=== PATIENT | male | born 1930 | race African-American/Black ===

== ENCOUNTER 2016-11-11 20:55 | Inpatient (IN) | payer OTHER, MEDICAID ==
[~2016-11-11] VITALS: Ht 182.9 cm; Wt 126.1 kg
[2016-11-11 20:57] VITALS: BP 97/55
--- NOTE | 2016-11-11 21:04 | NUR ---
PT BARRETT, VICTOR MS. TAKEN TO BED 1
--- NOTE | 2016-11-11 21:08 | NUR ---
86 Y/O M BIBA FROM [facility] IN [place] W/C/O Gangrenous left great toe, sent from [facility] per Dr Tipton. TOE AND FOOT APPEARS BLACK, TOE HAS AN OPEN 0.5 CM WOUND WITH TUNNELING. EXTREMITY APPEARS SWOLLEN. PT HAS A HX OF DEMENTIA, DM, AND HNT. VSS, PT AWAKED AND ORIENTED X 2,ER MD AWARED. NO S/S OF DISTRESS NOTED AT THE MOMENT.
[2016-11-11] MEDS ORDERED: VANCOMYCIN 1,000 MG in DEXTROSE 5% 250 ML IV ONE (21:50)
[2016-11-11] MEDS ORDERED: PIPERACILLIN/TAZOBACTAM 3.375 GM in DEXTROSE 5% 50 ML IV ONE (21:50)
--- NOTE | 2016-11-11 21:55 | NUR ---
X-Ray at bedside.
[2016-11-11] MEDS ORDERED: PIPERACILLIN/TAZOBACTAM 3.375 GM VIAL IV ONE (22:06)
[2016-11-11] MEDS ORDERED: VANCOMYCIN 1,000 MG VIAL ONE (22:07)
[2016-11-11] MEDS ORDERED: NEOMYCIN/POLYMYXIN/BACITRACIN 0.9 GM/1 PKT TP ONE (22:27)
[2016-11-11 22:29] LABS: BASOPHILS # (AUTO) 0.2 K/uL (0.00-0.22); BASOPHILS % (AUTO) 2.5 % (0.0-2.0); EOSINOPHILS # (AUTO) 0.2 K/uL (0-0.4); EOSINOPHILS % (AUTO) 2.3 % (0.0-4.0); HEMATOCRIT 32.7 % (36-52); HEMOGLOBIN 10.3 g/dL (12.0-18.0); LYMPHOCYTES # (AUTO) 2.7 K/uL (2.0-11.5); MEAN CORPUSCULAR HEMOGLOBIN 29 pg (27-31); MEAN CORPUSCULAR HGB CONC 32 g/dL (33-37); MEAN CORPUSCULAR VOLUME 92 fL (80-94); MONOCYTES # (AUTO) 0.6 K/uL (0.8-1.0); MONOCYTES % (AUTO) 9.2 % (1.7-9.3); NEUTROPHILS # (AUTO) 3.2 K/uL (1.8-7.7); PLATELET COUNT (AUTO) 235 K/uL (140-450); RED BLOOD CELL COUNT(AUTO) 3.57 MIL/uL (4.20-6.10); RED CELL DISTRIBUTION WIDTH 13.8 % (11.6-13.7); WHITE BLOOD COUNT (AUTO) 6.9 K/uL (4.8-10.8)
[2016-11-11 22:45] LABS: ALANINE AMINOTRANSFERASE 49 U/L (12-78); ALBUMIN 2.3 g/dL (3.4-5.0); ALKALINE PHOSPHATASE 570 U/L (46-116); ANION GAP 7.2 (8-16); ASPARTATE AMINOTRANSFERASE 37 U/L (15-37); CALCIUM 8.1 mg/dL (8.5-10.1); CARBON DIOXIDE 31.3 mmol/L (21-32); CHLORIDE 104 mmol/L (98-107); CREATININE 2.1 mg/dL (0.6-1.3); GLUCOSE 319 mg/dL (74-106); POTASSIUM 4.5 mmol/L (3.5-5.1); SODIUM SERUM 138 mmol/L (136-145); TOTAL BILIRUBIN 0.2 mg/dL (0.0-1.0); UREA NITROGEN, BLOOD 45 mg/dL (7-18)
--- NOTE | 2016-11-11 23:03 | NUR ---
Dr. Castellon evaluating patient at bedside.
[2016-11-11 23:45] LABS: APPEARANCE,URINE CLEAR (CLEAR); BILIRUBIN,URINE NEGATIVE (NEGATIVE); BLOOD, URINE 3+ (NEGATIVE); COLOR,URINE YELLOW (YELLOW); LEUKOCYTE ESTERASE ,URINE 1+ (NEGATIVE); NITRITE, URINE NEGATIVE (NEGATIVE); PROTEIN,URINE TRACE (NEGATIVE); UGLUCOSE 2+ (NEGATIVE); UROBILINOGEN,URINE 0.2 EU/dL (0.2 - 1)
[2016-11-12 00:31] LABS: BACTERIA,URINE 2+ /HPF (None Seen); RBC,URINE TOO NUMEROUS TO COUN /HPF (0-5); SQUAMOUS EPITHELIAL CELL,UR 0-3 (FEW) /LPF (0-3 (FEW)); WBC,URINE 40-60 /HPF (0-5); WHITE BLOOD CELL CASTS,URINE 0-3 /LPF (None Seen)
--- NOTE | 2016-11-12 00:55 | NUR ---
Patient will be admitted to care of DR. WOODSON. Admited to TELEMETRY. Will go to [id number]. Belongings list completed. Report to NATASHA POWELL.
[2016-11-12 01:00] VITALS: BP 136/67
--- NOTE | 2016-11-12 01:00 | NUR ---
RECEIVED PT FROM ER VIA BERNARDO, PT IS AAOX1 COOPERATIVE TO FOLLOW COMMANDS ON CARDIAC MO;;NITOR SR/ IAV BLOCK, IV HEPLOCK ON RT HAND, BLE WITH PERIPHERAL DISEASE AND DISCOLORATION DRYNESS SCABS , LEFT FOOT BIG TOE OPEN WOUND AND GANGRENOUS PICTURE ALREADY TAKEN IN ER PT IS ORIENTED TO THE FLOOR CALL LIGHT WITHIN REACH
--- NOTE | 2016-11-12 01:00 | NUR ---
PT TRASFERRED TO TELEMETRY BY GLENN RN, AND ALEX CANALES. VSS, PHYSICAL DESIGN ENGINEER IN BED.
[2016-11-12] MEDS ORDERED: DEXTROSE 50% 50 ML SYR IVP PRN ×4 (01:35→03:25)
[2016-11-12] MEDS ORDERED: PNEUMOCOCCAL VACCINE 23 MCG/0.5 ML VIAL IMVAC SCH (02:35)
--- NOTE | 2016-11-12 03:00 | NUR ---
PT SLEEPING WELL NOT DISTRESS NOTED ON TELE REPOSITIONED [id number] SR
[2016-11-12] MEDS ORDERED: ONDANSETRON 4 MG/2 ML VIAL IVP PRN (03:25)
[2016-11-12] MEDS ORDERED: VANCOMYCIN PER PHARMACY MC PRN (03:25)
[2016-11-12] MEDS ORDERED: RENAL DOSING PER PHARMACY MC PRN (03:25)
[2016-11-12] MEDS ORDERED: MORPHINE SULFATE 2 MG/ML SYR IVP PRN (03:25)
[2016-11-12] MEDS ORDERED: HYDROcodone/APAP 5/325 MG 1 TAB TAB PO PRN (03:25)
[2016-11-12] MEDS ORDERED: LORazepam 2 MG/ML VIAL IVP PRN (03:25)
[2016-11-12] MEDS ORDERED: ACETAMINOPHEN 325 MG TAB PO PRN (03:25)
[2016-11-12] MEDS: DEXT 5% /NACL 0.9% 1,000 ML IV SCH ×2 (03:25→13:01)
[2016-11-12 04:00] VITALS: BP 123/59
--- NOTE | 2016-11-12 04:00 | NUR ---
SPONGE BATH GIVEN LINEN CHANGED REPOSITIONED , IV ON RT HAND INFUSING WELL ON TELEMETRY SR
[2016-11-12] MEDS ORDERED: PIPERACILLIN/TAZOBACTAM 3.375 GM in DEXTROSE 5% 50 ML IV SCH (05:00)
[2016-11-12 05:59] LABS: BASOPHILS # (AUTO) 0.2 K/uL (0.00-0.22); BASOPHILS % (AUTO) 2.6 % (0.0-2.0); EOSINOPHILS # (AUTO) 0.2 K/uL (0-0.4); EOSINOPHILS % (AUTO) 2.5 % (0.0-4.0); HEMATOCRIT 32.2 % (36-52); HEMOGLOBIN 10.3 g/dL (12.0-18.0); LYMPHOCYTES # (AUTO) 2.9 K/uL (2.0-11.5); LYMPHOCYTES % (AUTO) 43.6 % (20.5-51.1); MEAN CORPUSCULAR HEMOGLOBIN 29 pg (27-31); MEAN CORPUSCULAR HGB CONC 32 g/dL (33-37); MEAN CORPUSCULAR VOLUME 91 fL (80-94); MONOCYTES # (AUTO) 0.7 K/uL (0.8-1.0); MONOCYTES % (AUTO) 9.9 % (1.7-9.3); NEUTROPHILS # (AUTO) 2.8 K/uL (1.8-7.7); NEUTROPHILS % (AUTO) 41.4 % (42.2-75.2); PLATELET COUNT (AUTO) 246 K/uL (140-450); RED BLOOD CELL COUNT(AUTO) 3.53 MIL/uL (4.20-6.10); RED CELL DISTRIBUTION WIDTH 13.5 % (11.6-13.7); WHITE BLOOD COUNT (AUTO) 6.8 K/uL (4.8-10.8)
[2016-11-12] MEDS: BLOOD GLUCOSE MONITORING 1 DEV DEV FS SCH ×4 (06:15→21:09)
[2016-11-12] MEDS: INSULIN LISPRO SLIDING SCALE 100 UNITS/ML VIAL SUBQ PRN ×4 (06:17→21:08)
[2016-11-12 06:18] LABS: CALCIUM 8.1 mg/dL (8.5-10.1); CARBON DIOXIDE 32.2 mmol/L (21-32); CHLORIDE 105 mmol/L (98-107); CREATININE 1.9 mg/dL (0.6-1.3); GLUCOSE 171 mg/dL (74-106); POTASSIUM 4.2 mmol/L (3.5-5.1); SODIUM SERUM 141 mmol/L (136-145); UREA NITROGEN, BLOOD 39 mg/dL (7-18)
[2016-11-12] MEDS: PIPER/TAZO 2.25GM/D5W PREMIX 50 ML IV SCH ×3 (06:26→17:48)
[2016-11-12] MEDS ORDERED: PIPERACILLIN/TAZOBACTAM 2.25 GM VIAL IV ONE (06:26)
[2016-11-12 06:28] LABS: INR 1.1 (0.8-1.2); PROTHROMBIN TIME 10.5 secs (10.8-13.4)
--- NOTE | 2016-11-12 06:28 | NUR ---
BLOOD SUGAR TEST 171 COVERAGE WITH 2 UNITS HUMALOG SUB Q ON RT ARM
--- NOTE | 2016-11-12 07:15 | NUR ---
RECEIVED REPORT FROM TRAILER DRIVER RN. PT SLEEPING. NO S/S OF ACUTE CARDIAC/RESPIRATORY DISTRESS. SAFETY MEASURES IN PLACE, CALL LIGHT WITHIN REACH. WILL CONTINUE PLAN OF CARE AND CONTINUE TO MONITOR.
[2016-11-12] MEDS ORDERED: BLOOD GLUCOSE MONITORING 1 DEV DEV FS SCH ×3 (07:30)
[2016-11-12 07:48] VITALS: BP 149/67
--- NOTE | 2016-11-12 09:04 | NUR ---
PATIENT HAS BEEN SCREENED AND CATEGORIZED HIGH NUTRITION RISK. PATIENT WILL BE SEEN WITHIN 1-2 DAYS OF ADMISSION. 11/12/16-11/13/[address]
--- NOTE | 2016-11-12 10:30 | NUR ---
PT IS SLEEPING. NO S/S OF ACUTE DISTRESS OR DISCOMFORT. CALL LIGHT WITHIN REACH, WILL CONTINUE TO MONITOR.
[2016-11-12 12:00] VITALS: BP 128/63
[2016-11-12] MEDS: DRY DRESSING TP SCH (13:00)
--- NOTE | 2016-11-12 13:00 | NUR ---
PT IS TOLERATED HIS INSULIN AND HEPARIN SUBQ WELL. PT IS RESTING. NO S/S OF ACUTE DISTRESS OR DISCOMFORT. PT IS CALM AND COOPERATIVE. CALL LIGHT WITHIN REACH, WILL CONTINUE TO MONITOR.
[2016-11-12] MEDS: MILD SOAP AND WATER TP SCH (13:01)
--- NOTE | 2016-11-12 15:00 | NUR ---
PT IS SLEEPING. NO S/S OF ACUTE DISTRESS OR DISCOMFORT. CALL LIGHT WITHIN REACH, WILL CONTINUE TO MONITOR.
--- NOTE | 2016-11-12 15:30 | NUR ---
SS NOTE: RECEIVED A COPY OF PT'S [employer] DIRECTIVE FORM, PLACED IT IN PT'S CHART UNDER THE [employer] DIRECTIVE TAB
[2016-11-12 16:00] VITALS: BP 126/63
--- NOTE | 2016-11-12 17:33 | NUR ---
PT IS SLEEPING. NO S/S OF ACUTE DISTRESS OR DISCOMFORT. CALL LIGHT WITHIN REACH, WILL CONTINUE TO MONITOR.
--- NOTE | 2016-11-12 19:10 | NUR ---
ENDORSED TO CONCRETE PRODUCTS DISPATCHER RN ANDRE. PT HAS NO S/S OF ACUTE DISTRESS OR DISCOMFORT. PT IN STABLE CONDITION.
--- NOTE | 2016-11-12 19:15 | NUR ---
RECEIVED PT FROM REED RN PT ALERTOX2 COOPERATIVE TO FOLLOW COMMANDS,ON TELEMETRY SR 1 AV BLOCK, IV ON RT HAND INFUSING WELL REPOSITIONED INITIAL ASSESSMENT DONE
[2016-11-12 20:00] VITALS: BP 142/67
[2016-11-12] MEDS: NACL 0.9% 1,000 ML IV SCH (21:25)
--- NOTE | 2016-11-12 21:30 | NUR ---
BLOOD SUGAR TEST 167 COVERAGE WITH 2 UNITS SUB HUMALOG
--- NOTE | 2016-11-12 21:45 | NUR ---
DR FONTANA IS HERE AND SEE THE PT.
--- NOTE | 2016-11-12 21:54 | NUR ---
REASSESSED PT TEMP WITH COOLING MEASURES, STILL ELEVATED. ADMINISTERED TYLENOL PER MD ORDER. WILL CONTINUE TO MONITOR. Addendum: 11/14/16 at 0216 by Nida Louis RN WRONG DATE
[2016-11-13] VITALS: BP 122/57
[2016-11-13] MEDS: PIPER/TAZO 2.25GM/D5W PREMIX 50 ML IV SCH ×4 (00:27→18:00)
--- NOTE | 2016-11-13 00:33 | NUR ---
pt sleeping well not distress noted iv on rt hand infusing well on telemetry sr repositioned q2h
[2016-11-13] MEDS: MILD SOAP AND WATER TP SCH ×2 (01:00→12:45)
--- NOTE | 2016-11-13 03:13 | NUR ---
PT SLEEPING WELL NOT DISTRESS NOTED REPOSITIONED Q2H ON TELEMETRY SR IV ON RT HAND INFUSING WELL
[2016-11-13 04:00] VITALS: BP 124/60
--- NOTE | 2016-11-13 05:00 | NUR ---
SPONGE BTN GIVEN , LINEN CHANGED NOT DISTRESS ON TELE SR, REPOSITIONED Q2H
[2016-11-13 05:55] LABS: BASOPHILS # (AUTO) 0.1 K/uL (0.00-0.22); BASOPHILS % (AUTO) 1.3 % (0.0-2.0); EOSINOPHILS # (AUTO) 0.2 K/uL (0-0.4); EOSINOPHILS % (AUTO) 2.7 % (0.0-4.0); HEMATOCRIT 31.3 % (36-52); HEMOGLOBIN 10.2 g/dL (12.0-18.0); LYMPHOCYTES % (AUTO) 43.2 % (20.5-51.1); MEAN CORPUSCULAR HEMOGLOBIN 30 pg (27-31); MEAN CORPUSCULAR HGB CONC 33 g/dL (33-37); MEAN CORPUSCULAR VOLUME 91 fL (80-94); MONOCYTES # (AUTO) 0.6 K/uL (0.8-1.0); MONOCYTES % (AUTO) 9.4 % (1.7-9.3); NEUTROPHILS # (AUTO) 2.9 K/uL (1.8-7.7); NEUTROPHILS % (AUTO) 43.4 % (42.2-75.2); PLATELET COUNT (AUTO) 229 K/uL (140-450); RED BLOOD CELL COUNT(AUTO) 3.44 MIL/uL (4.20-6.10); RED CELL DISTRIBUTION WIDTH 13.6 % (11.6-13.7); WHITE BLOOD COUNT (AUTO) 6.8 K/uL (4.8-10.8)
[2016-11-13] MEDS: INSULIN LISPRO SLIDING SCALE 100 UNITS/ML VIAL SUBQ PRN ×3 (06:04→22:28)
[2016-11-13] MEDS: BLOOD GLUCOSE MONITORING 1 DEV DEV FS SCH ×4 (06:05→21:53)
--- NOTE | 2016-11-13 06:08 | NUR ---
BLOOD SUGAR TEST 194 COVERAGE WITH 2 UNITS REG INSULIN
[2016-11-13 06:21] LABS: ANION GAP 8.5 (8-16); CARBON DIOXIDE 31.8 mmol/L (21-32); CHLORIDE 106 mmol/L (98-107); CREATININE 1.9 mg/dL (0.6-1.3); GLUCOSE 190 mg/dL (74-106); POTASSIUM 4.3 mmol/L (3.5-5.1); SODIUM SERUM 142 mmol/L (136-145); UREA NITROGEN, BLOOD 32 mg/dL (7-18)
[2016-11-13 06:26] LABS: MAGNESIUM 2.1 mg/dL (1.8-2.4); PHOSPHORUS 2.9 mg/dL (2.5-4.9)
--- NOTE | 2016-11-13 07:30 | NUR ---
RECEIVED REPORT FROM GREASER AND OILER RN. PT IS SLEEPING. NO S/S OF ACUTE CARDIAC/RESPIRATORY DISTRESS OR DISCOMFORT. SAFETY MEASURES AND FALL RISK PRECAUTION IN PLACE. CALL LIGHT WITHIN REACH. WILL CONTINUE PLAN OF CARE AND CONTINUE TO MONITOR.
[2016-11-13 07:44] VITALS: BP 136/68
[2016-11-13] MEDS: NACL 0.9% 1,000 ML IV SCH ×2 (08:00→21:51)
[2016-11-13] MEDS ORDERED: VANCOMYCIN 1GM/DEXT 5% PREMIX 200 ML IV SCH (09:00)
--- NOTE | 2016-11-13 10:18 | NUR ---
PT SLEEPING. PT TOLERATING MEDICATION WELL. PT REPOSITIONED. NO S/S OF ACUTE DISTRESS OR DISCOMFORT. CALL LIGHT WITHIN REACH, WILL CONTINUE TO MONITOR.
[2016-11-13] MEDS: DRY DRESSING TP SCH (12:45)
--- NOTE | 2016-11-13 13:30 | NUR ---
PT RESTING IN BED WITH EYES OPEN. NO S/S OF ACUTE DISTRESS OR DISCOMFORT. CALL LIGHT WITHIN REACH, WILL CONTINUE TO MONITOR.
[2016-11-13] MEDS ORDERED: ALBUTEROL SULFATE/IPRATROPIU 3 ML SOL IH PRN (14:20)
--- NOTE | 2016-11-13 15:47 | NUR ---
11/13/16 RD INITIAL ASSESSMENT COMPLETED PLEASE REFER TO NUTRITION ASSESSMENT UNDER CARE ACTIVITY FOR ESTIMATED NUTRITIONAL NEEDS. RD RECOMMENDATIONS: 1. CONTINUE CCHO 60 GM DIET TOLERATED --PT MEETING 100% OF ESTIMATED KCAL AND PROTEIN NEEDS. 2. RD WILL F/U 3-5 DAYS; MODERATE RISK. CAMILO GANDHI, LUPE
[2016-11-13 16:00] VITALS: BP 106/67
--- NOTE | 2016-11-13 16:00 | NUR ---
PT SLEEPING. PT REPOSITIONED. RT ASSESSING FOR BREATHING TX. PT HAS NO S/S OF ACUTE DISTRESS OR DISCOMFORT. CALL LIGHT WITHIN REACH, WILL CONTINUE TO MONITOR.
[2016-11-13] MEDS: ALBUTEROL SULFATE/IPRATROPIU 3 ML SOL IH SCH (19:22)
--- NOTE | 2016-11-13 19:30 | NUR ---
RECEIVED REPORT FROM DAY RN FOR CONTINUITY OF CARE. PATIENT IS A&OX2/3, PER REPORT HAS PERIODS OF FORGETFULNESS. DISCUSSED PLAN OF CARE WITH PATIENT, ABLE TO VERBALIZE UNDERSTANDING. SHIFT ASSESSMENT DONE, VS TAKEN, TEMP 99.2, ALL OTHER VS STABLE. IMPLEMENTED COOLING MEASURES. NO S/S OF RESPIRATORY DISTRESS NOTED ON ROOM AIR. PATIENT DENIES PAIN. IV TO RT HAND 22 GAUGE PATENT AND INFUSING FLUIDS WELL. PT HAS LEFT FOOT WOUND COVERED WITH DRESSING DRY & INTACT. SAFETY/FALL PRECAUTIONS ENFORCED. CALL LIGHT PLACED WITHIN REACH. WILL CONTINUE TO MONITOR.
--- NOTE | 2016-11-13 19:30 | NUR ---
ENDORSED REPORT TO WATER PROJECT ENGINEER RN. PT HAS NO S/S OF ACUTE DISCOMFORT OR DISTRESS. PT IN STABLE CONDITION.
[2016-11-13 20:00] VITALS: BP 129/60
--- NOTE | 2016-11-13 21:50 | NUR ---
TURNED AND REPOSITIONED PATIENT. DUE MEDICATIONS ADMINISTERED, TOLERATED WELL. BLOOD SUGAR TAKEN 187, WILL ADMINISTER INSULIN PER MD ORDER. CALL LIGHT WITHIN REACH.
--- NOTE | 2016-11-13 21:54 | NUR ---
REASSESSED PT TEMP WITH COOLING MEASURES, STILL ELEVATED. ADMINISTERED TYLENOL PER MD ORDER. WILL CONTINUE TO MONITOR.
--- NOTE | 2016-11-13 22:28 | NUR ---
INSULIN ADMINISTERED. PT IS NOW SLEEPING. NO S/S OF DISTRESS NOTED. WILL CONTINUE TO MONITOR.
[2016-11-14] VITALS: BP 143/69
[2016-11-14] MEDS: PIPER/TAZO 2.25GM/D5W PREMIX 50 ML IV SCH ×5 (00:14→23:10)
--- NOTE | 2016-11-14 00:14 | NUR ---
VS TAKEN, TEMP IS NOW 98.2 ORAL AND 99.1 TYMPANIC. REMOVED PT BLANKET AND REFILLED ICE PACKS. DUE ANTIBIOTICS ADMINISTERED, NO REACTION NOTED.
[2016-11-14] MEDS: ALBUTEROL SULFATE/IPRATROPIU 3 ML SOL IH SCH ×4 (01:06→19:10)
[2016-11-14] MEDS: MILD SOAP AND WATER TP SCH ×2 (01:40→13:00)
--- NOTE | 2016-11-14 02:17 | NUR ---
WOUND CARE PERFORMED, PT TOLERATED WELL. TURNED AND REPOSITIONED PATIENT TO OFFLOAD PRESSURE. CALL LIGHT WITHIN REACH.
--- NOTE | 2016-11-14 04:03 | NUR ---
TEMP NOW 98.1. TURNED AND REPOSITIONED PATIENT AND PROVIDED NEW LINENS. CALL LIGHT WITHIN REACH.
[2016-11-14] MEDS: BLOOD GLUCOSE MONITORING 1 DEV DEV FS SCH ×4 (06:00→20:58)
--- NOTE | 2016-11-14 06:01 | NUR ---
BLOOD SUGAR, 169 WILL ADMINISTER INSULIN PER MD ORDER. TURNED PATIENT. WILL CONTINUE TO MONITOR.
[2016-11-14] MEDS: INSULIN LISPRO SLIDING SCALE 100 UNITS/ML VIAL SUBQ PRN ×4 (06:04→21:01)
[2016-11-14 06:21] LABS: BASOPHILS # (AUTO) 0.1 K/uL (0.00-0.22); BASOPHILS % (AUTO) 1.4 % (0.0-2.0); EOSINOPHILS # (AUTO) 0.2 K/uL (0-0.4); EOSINOPHILS % (AUTO) 2.5 % (0.0-4.0); LYMPHOCYTES # (AUTO) 3.1 K/uL (2.0-11.5); LYMPHOCYTES % (AUTO) 47.5 % (20.5-51.1); MEAN CORPUSCULAR HEMOGLOBIN 29 pg (27-31); MEAN CORPUSCULAR HGB CONC 32 g/dL (33-37); MEAN CORPUSCULAR VOLUME 91 fL (80-94); MONOCYTES # (AUTO) 0.6 K/uL (0.8-1.0); MONOCYTES % (AUTO) 8.1 % (1.7-9.3); NEUTROPHILS # (AUTO) 2.8 K/uL (1.8-7.7); NEUTROPHILS % (AUTO) 40.5 % (42.2-75.2); PLATELET COUNT (AUTO) 242 K/uL (140-450); RED BLOOD CELL COUNT(AUTO) 3.42 MIL/uL (4.20-6.10); RED CELL DISTRIBUTION WIDTH 13.7 % (11.6-13.7); WHITE BLOOD COUNT (AUTO) 6.8 K/uL (4.8-10.8)
[2016-11-14 06:39] LABS: PHOSPHORUS 2.7 mg/dL (2.5-4.9); VANCOMYCIN,TROUGH 9.8 ug/ml (5-15)
[2016-11-14 06:41] LABS: ANION GAP 9.1 (8-16); CALCIUM 8.2 mg/dL (8.5-10.1); CHLORIDE 107 mmol/L (98-107); CREATININE 1.9 mg/dL (0.6-1.3); GLUCOSE 173 mg/dL (74-106); POTASSIUM 4.1 mmol/L (3.5-5.1); SODIUM SERUM 143 mmol/L (136-145); UREA NITROGEN, BLOOD 28 mg/dL (7-18)
--- NOTE | 2016-11-14 07:20 | NUR ---
RECEIVED PATIENT REPORT AT BEDSIDE. PATIENT ASLEEP BUT EASILY AROUSABLE. NO S/S OF DISTRESS NOTED. PATIENT BREATHING ON ROOM AIR. WOUND DRESSING NOTED TO THE LEFT FOOT. IV LINE NOTED TO THE RIGHT HAND WITH IVF INFUSING WELL. BED LOWERED WITH CALL LIGHT WITHIN REACH. WILL CONTINUE TO MONITOR
--- NOTE | 2016-11-14 07:27 | NUR ---
ENDORSED PATIENT TO MIGUEL RN FOR CONTINUITY OF CARE, PATIENT IS IN STABLE CONDITION.
[2016-11-14 08:00] VITALS: BP 134/65
[2016-11-14] MEDS ORDERED: VANCOMYCIN 1GM/DEXT 5% PREMIX 200 ML IV SCH (09:00)
[2016-11-14] MEDS: NACL 0.9% 1,000 ML IV SCH (10:40)
--- NOTE | 2016-11-14 10:56 | NUR ---
PATIENT ASLEEP IN BED. NO S/S OF DISTRESS NOTED
[2016-11-14] MEDS: DRY DRESSING TP SCH (13:00)
--- NOTE | 2016-11-14 14:47 | NUR ---
PATIENT SEEN BT DR DILLON. WOUND DRESSING CHANGED. PT TOLERATED WELL
--- NOTE | 2016-11-14 15:00 | NUR ---
OBTAINED TELEPHONE CONSENT FROM PATIENT'S TAPE FASTENER MACHINE OPERATOR JESU MC FOR I&D/ DEBRIDEMENT OF THE LEFT FIRST TOE
[2016-11-14 16:00] VITALS: BP 138/68
--- NOTE | 2016-11-14 17:14 | NUR ---
PATIENT ASLEEP. NO S/S OF DISTRESS NOTED
--- NOTE | 2016-11-14 19:20 | NUR ---
PATIENT REPORT GIVEN AT BEDSIDE. PATIENT RECEIVING BREATHING TX. PATIENT ENDORSED IN STABLE CONDITION
--- NOTE | 2016-11-14 19:21 | NUR ---
RECD. RESTING IN BED, AWAKE, A/OX2, FORGETFUL. RESPIRATION EVEN AND UNLABORED. IV OF NS AT 75 ML/HR INFUSING, RIGHT HAND G22. BILATERAL LOWER EXTREMITIES WITH DISCOLORATION, RIGHT LEG WOUND AND LEFT FOOT WOUND COVERED WITH DRESSING, ALL DRY AND INTACT. PLAN OF CARE FOR THE NIGHT DISCUSSED. NEEDS REINFORCEMENT. DENIES PAIN 0/10.
--- NOTE | 2016-11-14 20:00 | NUR ---
Patient's Plan of Care was discussed and reviewed with JACINTA: INES.
--- NOTE | 2016-11-14 21:00 | NUR ---
SNACK GIVEN FOR THE NIGHT, ATE 100%.
--- NOTE | 2016-11-14 22:00 | NUR ---
HAD MEDIUM FORMED BM, CLEANSED AND REPOSITIONED WITH PILLOWS FOR COMFORT.
[2016-11-15] VITALS: BP 133/60
--- NOTE | 2016-11-15 | NUR ---
SLEEPING COMFORTABLY IN BED.
--- NOTE | 2016-11-15 00:10 | NUR ---
BP AFTER BOLUS OF NS - 116/73, HR -78. NO COMPLAINT OF DIZZINESS.
[2016-11-15] MEDS: ALBUTEROL SULFATE/IPRATROPIU 3 ML SOL IH SCH ×4 (00:12→19:14)
[2016-11-15] MEDS: MILD SOAP AND WATER TP SCH ×2 (01:00→13:34)
[2016-11-15] MEDS: NACL 0.9% 1,000 ML IV SCH ×2 (03:51)
--- NOTE | 2016-11-15 04:00 | NUR ---
SLEEPING IN BED, VS STABLE.
--- NOTE | 2016-11-15 05:00 | NUR ---
CLEANSED AND REPOSITION IN BED WITH PILLOWS FOR COMFORT.
[2016-11-15] MEDS: PIPER/TAZO 2.25GM/D5W PREMIX 50 ML IV SCH ×3 (06:05→17:28)
[2016-11-15] MEDS: INSULIN LISPRO SLIDING SCALE 100 UNITS/ML VIAL SUBQ PRN ×4 (06:15→21:44)
[2016-11-15 06:27] LABS: ANION GAP 9.6 (8-16); CALCIUM 8.4 mg/dL (8.5-10.1); CARBON DIOXIDE 28.5 mmol/L (21-32); CHLORIDE 107 mmol/L (98-107); CREATININE 1.9 mg/dL (0.6-1.3); GLUCOSE 212 mg/dL (74-106); POTASSIUM 4.1 mmol/L (3.5-5.1); SODIUM SERUM 141 mmol/L (136-145); UREA NITROGEN, BLOOD 23 mg/dL (7-18)
[2016-11-15 06:59] LABS: HEMOGLOBIN 10.4 g/dL (12.0-18.0); MEAN CORPUSCULAR HEMOGLOBIN 29 pg (27-31); MEAN CORPUSCULAR HGB CONC 32 g/dL (33-37); MEAN CORPUSCULAR VOLUME 90 fL (80-94); PLATELET COUNT (AUTO) 243 K/uL (140-450); RED BLOOD CELL COUNT(AUTO) 3.56 MIL/uL (4.20-6.10); RED CELL DISTRIBUTION WIDTH 13.6 % (11.6-13.7); WHITE BLOOD COUNT (AUTO) 11.4 K/uL (4.8-10.8)
--- NOTE | 2016-11-15 07:05 | NUR ---
RECEIVED PATIENT REPORT AT BEDSIDE. PATIENT ASLEEP BUT EASILY AROUSABLE. NO S/S OF DISTRESS NOTED. DRESSING ON BLE CLEAN,DRY AND INTACT. IV LINE TO THE RIGHT FOREARM INTACT WITH IVF INFUSING WELL. BED LOWERED WITH CALL LIGHT WITHIN REACH. WILL CONTINUE TO MONITOR
[2016-11-15 07:13] LABS: MAGNESIUM 1.9 mg/dL (1.8-2.4); PHOSPHORUS 2.7 mg/dL (2.5-4.9)
--- NOTE | 2016-11-15 07:15 | NUR ---
CONDITION REMAIN STABLE. NO COMPLAINT OF PAIN DURING SHIFT. ENDORSED TO NATASHA RIVERA FOR CONTINUITY OF CARE.
[2016-11-15] MEDS: BLOOD GLUCOSE MONITORING 1 DEV DEV FS SCH ×4 (07:31→21:34)
[2016-11-15 07:36] LABS: BAND % (MANUAL) 0 % (0-8); BASOPHILS % (MANUAL) 0 % (0-2); EOSINOPHILS % (MANUAL) 5 % (0-4); LYMPHOCYTES % (MANUAL) 39 % (20-46); MONOCYTES % (MANUAL) 7 % (5-12); NEUTROPHILS % (MANUAL) 49 (43-65); PLATELET ESTIMATE ADEQUATE
[2016-11-15 08:00] VITALS: BP 147/76
--- NOTE | 2016-11-15 08:30 | NUR ---
PATIENT REPOSITIONED. PT TOLERATED WELL
[2016-11-15] MEDS ORDERED: VANCOMYCIN PER PHARMACY MC PRN (10:10)
--- NOTE | 2016-11-15 11:30 | NUR ---
PATIENT ASLEEP IN BED. NO S/S OF DISTRESS NOTED
[2016-11-15] MEDS: VANCOMYCIN 1,250 MG in DEXTROSE 5% 250 ML IV SCH (13:31)
[2016-11-15] MEDS: DRY DRESSING TP SCH (13:34)
--- NOTE | 2016-11-15 14:30 | NUR ---
PATIENT HAD A BM. BOWEL SMALL AND FORMED. PATIENT CLEANED AND REPOSITIONED. PT TOLERATED WELL
[2016-11-15 16:00] VITALS: BP 147/77
--- NOTE | 2016-11-15 16:50 | NUR ---
PATIENT ASLEEP IN BED. NO S/S OF DISTRESS NOTED
--- NOTE | 2016-11-15 18:11 | NUR ---
PATIENT EATING DINNER IN BED. NO S/S OF DISTRESS NOTED
--- NOTE | 2016-11-15 19:13 | NUR ---
ENDORSED CONTINUITY OF CARE TO THE NIGHT NURSE. PATIENT IN STABLE CONDITION
--- NOTE | 2016-11-15 19:14 | NUR ---
RECD. RESTING IN BED, AWAKE, A/OX2. RESPIRATION EVEN AND UNLABORED. IV NS AT 75 ML/HR INFUSING, RIGHT HAND G 22. RIGHT LOWER EXTREMITY WOUND AND LEFT TOE WOUND COVERED WITH DRESSING DRY AND INTACT. PATIENT IS BEDBOUND AND INCONTINENT. SAFETY MEASURES ENFORCED. PLAN OF CARE FOR THE SHIFT DISCUSSED. NEEDS REINFORCEMENT. DENIES PAIN 0/10.
--- NOTE | 2016-11-15 19:40 | NUR ---
Patient's Plan of Care was discussed and reviewed with BOOT MAKER: INES Montemayor
--- NOTE | 2016-11-15 21:20 | NUR ---
SNACK GIVEN FOR THE NIGHT, ATE 100%.
--- NOTE | 2016-11-15 23:30 | NUR ---
REORIENTED TO HOSPITAL SETTING. MADE AWARE THAT HE IS NPO PAST MIDNIGHT FOR HIS PLANNED SURGERY IN THE MORNING. NEEDS REINFORCEMENT.
[2016-11-16] VITALS: BP 153/75
--- NOTE | 2016-11-16 | NUR ---
SLEEPING COMFORTABLY IN BED.
[2016-11-16] MEDS: PIPER/TAZO 2.25GM/D5W PREMIX 50 ML IV SCH ×4 (00:08→17:34)
[2016-11-16] MEDS: MILD SOAP AND WATER TP SCH ×2 (01:00→13:00)
[2016-11-16] MEDS: ALBUTEROL SULFATE/IPRATROPIU 3 ML SOL IH SCH ×4 (01:44→20:24)
[2016-11-16 06:18] LABS: BASOPHILS # (AUTO) 0.1 K/uL (0.00-0.22); BASOPHILS % (AUTO) 1.4 % (0.0-2.0); EOSINOPHILS # (AUTO) 0.2 K/uL (0-0.4); EOSINOPHILS % (AUTO) 3.1 % (0.0-4.0); HEMATOCRIT 32.7 % (36-52); HEMOGLOBIN 10.9 g/dL (12.0-18.0); LYMPHOCYTES # (AUTO) 2.6 K/uL (2.0-11.5); LYMPHOCYTES % (AUTO) 44.4 % (20.5-51.1); MEAN CORPUSCULAR HEMOGLOBIN 30 pg (27-31); MEAN CORPUSCULAR HGB CONC 33 g/dL (33-37); MEAN CORPUSCULAR VOLUME 91 fL (80-94); MONOCYTES # (AUTO) 0.4 K/uL (0.8-1.0); MONOCYTES % (AUTO) 7.5 % (1.7-9.3); NEUTROPHILS # (AUTO) 2.6 K/uL (1.8-7.7); NEUTROPHILS % (AUTO) 43.6 % (42.2-75.2); PLATELET COUNT (AUTO) 257 K/uL (140-450); RED CELL DISTRIBUTION WIDTH 13.4 % (11.6-13.7); WHITE BLOOD COUNT (AUTO) 5.9 K/uL (4.8-10.8)
--- NOTE | 2016-11-16 06:30 | NUR ---
ABLE TO SLEEP WELL. CONDITION REMAIN STABLE. MADE AWARE AGAIN OF THE PLANNED SURGERY TODAY. WILL ENDORSE TO AM NURSE FOR CONTINUITY OF CARE.
[2016-11-16 06:35] LABS: ANION GAP 7.7 (8-16); CALCIUM 8.6 mg/dL (8.5-10.1); CARBON DIOXIDE 30.3 mmol/L (21-32); CHLORIDE 105 mmol/L (98-107); CREATININE 1.8 mg/dL (0.6-1.3); GLUCOSE 229 mg/dL (74-106); SODIUM SERUM 139 mmol/L (136-145); UREA NITROGEN, BLOOD 19 mg/dL (7-18)
[2016-11-16 06:42] LABS: MAGNESIUM 1.7 mg/dL (1.8-2.4); PHOSPHORUS 2.7 mg/dL (2.5-4.9)
[2016-11-16] MEDS: BLOOD GLUCOSE MONITORING 1 DEV DEV FS SCH ×4 (06:43→21:03)
[2016-11-16] MEDS: INSULIN LISPRO SLIDING SCALE 100 UNITS/ML VIAL SUBQ PRN ×4 (06:44→20:56)
--- NOTE | 2016-11-16 07:25 | NUR ---
ENDORSED TO NATASHA NASH FOR CONTINUITY OF CARE.
--- NOTE | 2016-11-16 07:26 | NUR ---
RECEIVED REPORT FROM THE STOCK MIXER NURSE AT BEDSIDE. PT IS AWAKE AND ALERT. HE IS AN 86 Y/O AFR[place]IOP[place] MALE, HE IS TO HAVE A SURGICAL PROCEDURE DONE TODAY. ALL CONSENTS ARE SIGNED, PRE-OP LIST DONE, AND I JUST NEED TO WORK ON THE TICKET TO RIDE, PER STOCK MIXER NURSE. PT IS BEDBOUND, INCONTINENT, HIS SKIN IS INTACT EXCEPT FOR THE LEFT FOOT WHICH HE IS HAVING SURGERY FOR. HE HAS AN IV R HAND TKO. PT 'S MAG LEVEL IS LOW TODAY. WILL RELAY THE RESULTS TO THE PER STOCK MIXER NURSE. HEPARIN WAS HELD ON HER SHIFT. PT IS RESTING COMFORTABLY. NO SIGNS OF DISTRESS. WILL CONTINUE TO MONITOR PT. ALL SAFETY MEASURES IN PLACE.
[2016-11-16 08:00] VITALS: BP 143/68
--- NOTE | 2016-11-16 08:30 | NUR ---
PT SLEEPING. NO SIGNS OF DISTRESS.WILL CONTINUE TO MONITOR PT.
--- NOTE | 2016-11-16 10:00 | NUR ---
HELPED FOOD GENERAL MANAGER WITH MORNING ADL'S. PT IS ALL CLEAN AND DRY. JUST WAITING FOR PROCEDURE. NO COMPLAINTS AT THIS TIME. WILL CONTINUE TO MONITOR PT.
--- NOTE | 2016-11-16 10:15 | NUR ---
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 PAST MEDICAL HISTORY INCLUDE HYPERTENSION, COPD, DIABETES, PVD, PERIPHERAL NEUROPATHY, CVA AND CHRONIC ANEMIA. ALL ABOVE INFORMATION WAS OBTAINED FROM THE ADMISSION H&P. LABS ARE WBC 5.9, H/H 10.9/32.7, GLUCOSE 229, ALBUMIN 2.3, PT/INR 10.5/1.1 AND PTT 1.1. CURRENT MEDS INCLUDE VANCOMYCIN, ZOSYN, INSULIN, MORPHINE, ATIVAN AND NORCO. PATIENT IS AWAKE, ORIENTED TO PERSON BUT NOT TO PLACE AND TIME. SKIN WARM TO TOUCH WNL, TOENAILS ARE THICKENED, NO EDEMA, NO HAIR GROWTH, BLE WITH DISCOLORATION AND UNABLE TO PALPATE BILATERAL PEDAL PULSES. URINE AND BOWEL INCONTINENT. NEEDS MAX ASSISTANCE IN TURNING. INITIAL PLAN OF CARE AND PRESSURE PREVENTIVE MEASURES DISCUSSED, ABLE TO VERBALIZE UNDERSTANDING. INTEGUMENTARY: LEFT GREAT TOE - DIABETIC ULCER VS ARTERIAL - 100% BLACK. SCHEDULED FOR I&D AND POSSIBLE AMPUTATION TODAY BY DR. DILLON. BLE - WITH DISCOLORATION -WILL FOLLOW UP PATIENT POST I&D
[2016-11-16] MEDS ORDERED: MAG SULF 2000 MG/WATER PREMIX 50 ML IV SCH ×2 (11:19→18:33)
--- NOTE | 2016-11-16 11:23 | NUR ---
SPOKE TO DR. FRANKS. TOLD HIM ABOUT HIS MAG LEVEL. ORDERED MAG RIDER 2G AND PO MAG SULF 400MG Q D. PUT IN THE ORDERS FOR THE .
[2016-11-16] MEDS: BUPIVACAINE-MPF 0.25% 30 ML VIAL INJ ONE ×2 (12:01→13:21)
--- NOTE | 2016-11-16 12:15 | NUR ---
2 O.R. NURSES HERE TO TAKE PT FOR PROCEDURE. TICKET TO RIDE AND CONSENT IN THE CHART.
[2016-11-16] MEDS ORDERED: fentaNYL 0.05 MG/ML VIAL ONE (12:45)
[2016-11-16] MEDS ORDERED: SEVOFLURANE 250 ML BTL INH ONE (12:46)
[2016-11-16] MEDS ORDERED: ONDANSETRON 4 MG/2 ML VIAL IVP ONE (12:46)
[2016-11-16] MEDS ORDERED: PROPOFOL 200 MG/20 ML VIAL IV ONE (12:46)
[2016-11-16] MEDS: DRY DRESSING TP SCH (13:00)
[2016-11-16] MEDS ORDERED: ONDANSETRON 4 MG/2 ML VIAL IVP PRN (13:20)
[2016-11-16] MEDS ORDERED: HYDROmorphone 1 MG/ML AMP IVP PRN (13:20)
[2016-11-16] MEDS ORDERED: BLOOD GLUCOSE MONITORING 1 DEV DEV FS SCH (13:21)
--- NOTE | 2016-11-16 14:29 | NUR ---
ENDORSED PT TO NATASHA YOUNG PER CHARGE NURSE. PT JUST RETURNED FROM OR. PT IS IN STABLE CONDITION. PT IS AWAKE AND ALERT. PT IS AWARE OF THE SWITCH IN NURSES.
[2016-11-16 14:30] VITALS: BP 126/78
--- NOTE | 2016-11-16 14:30 | NUR ---
RECEIVED REPORT FROM NATASHA NASH. PT RESTING IN BED. NO S/S OF ACUTE DISTRESS. PT DENIES PAIN. AAOX2-3.IV SITE PATENT AND INTACT. CALL LIGHT WITHIN REACH. SAFETY MEASURES ENSURED. WILL CONTINUE TO MONITOR.
[2016-11-16] MEDS: VANCOMYCIN 1,250 MG in DEXTROSE 5% 250 ML IV SCH (15:14)
[2016-11-16 16:00] VITALS: BP 141/69
--- NOTE | 2016-11-16 19:17 | NUR ---
ENDORSED PLAN OF CARE TO NIGHT RN. PT REMAINS IN STABLE CONDITION.
--- NOTE | 2016-11-16 19:18 | NUR ---
RECEIVED PT IN STABLE CONDITION FROM NATASHA YOUNG. NO SOB, NO SIGNS OF DISTRESS. VS STABLE ON ROOM AIR. PT DENIES PAIN AT THIS TIME. PT IS AOX1, CONFUSED AND FORGETFUL, ABLE TO FOLLOW COMMANDS. IV TO RT HAND 22G PATENT, ASYMPTOMATIC, INTACT, IVF RUNNING TKO. PT IS S/P LT BIG TOE PARTIAL AMPUTATION TODAY WITH DRESSING DRY AND INTACT. PT IS BEDBOUND WITH GENERALIZED WEAKNESS. PLAN OF CARE DISCUSSED WITH PT. SAFETY MEASURES IN PLACE. CALL LIGHT WITHIN REACH. WILL CONTINUE TO MONITOR.
[2016-11-16] MEDS ORDERED: MAG SULF 2000 MG/WATER PREMIX 50 ML IV ONE (20:15)
--- NOTE | 2016-11-16 20:38 | NUR ---
CALL FROM PHARMACY, DUPLICATE ORDER OF IV MAG RIDER PUT IN BY MD Sim FRANKS. CLARIFICATION REQUIRED, WILL PAGE .
--- NOTE | 2016-11-16 20:57 | NUR ---
PT TOLERATED DUE MEDS WELL. BLOOD SUGAR 233, GAVE INSULIN PER MD ORDER. NO SOB, NO SIGNS OF DISTRESS. IV SITE ASYMPTOMATIC, INTACT, PATENT, IVF RUNNING TKO. PT DENIES PAIN AT THIS TIME. PLAN OF CARE DISCUSSED WITH PT. SAFETY MEASURES IN PLACE. CALL LIGHT WITHIN REACH. WILL CONTINUE TO MONITOR.
--- NOTE | 2016-11-16 22:26 | NUR ---
FOREIGN POLICY OFFICER LINDA CLARIFIED ORDER WITH MD Sim FRANKS MD STATED TO DC HIS ORDER FOR MAG ALEXIS. WILL F/U.
[2016-11-17] VITALS: BP 154/76
--- NOTE | 2016-11-17 00:15 | NUR ---
VS STABLE ON ROOM AIR. NO SOB, NO SIGNS OF DISTRESS. IV SITE ASYMPTOMATIC, INTACT, PATENT, IVF RUNNING TKO. PT DENIES PAIN AT THIS TIME. PLAN OF CARE DISCUSSED WITH PT. SAFETY MEASURES IN PLACE. CALL LIGHT WITHIN REACH. WILL CONTINUE TO MONITOR.
[2016-11-17] MEDS: MILD SOAP AND WATER TP SCH ×2 (01:00→13:49)
[2016-11-17] MEDS: ALBUTEROL SULFATE/IPRATROPIU 3 ML SOL IH SCH ×3 (01:39→13:04)
--- NOTE | 2016-11-17 02:12 | NUR ---
PT ASLEEP IN BED. NO SOB, NO SIGNS OF DISTRESS. IV SITE ASYMPTOMATIC, INTACT, PATENT, IVF RUNNING. SAFETY MEASURES IN PLACE. CALL LIGHT WITHIN REACH. WILL CONTINUE TO MONITOR.
--- NOTE | 2016-11-17 04:15 | NUR ---
PT WITH VOID, CLEANED AND TURNED PT. TOLERATED WELL. NO SOB, NO SIGNS OF DISTRESS. PT DENIES ANY PAIN AT THIS TIME. IV SITE ASYMPTOMATIC, INTACT, IVF RUNNING TKO. PLAN OF CARE DISCUSSED WITH PT. SAFETY MEASURES IN PLACE. CALL LIGHT WITHIN REACH. WILL CONTINUE TO MONITOR.
[2016-11-17] MEDS: BLOOD GLUCOSE MONITORING 1 DEV DEV FS SCH ×2 (06:13→11:53)
[2016-11-17] MEDS: INSULIN LISPRO SLIDING SCALE 100 UNITS/ML VIAL SUBQ PRN ×2 (06:14→12:05)
[2016-11-17 06:22] LABS: BASOPHILS # (AUTO) 0.1 K/uL (0.00-0.22); BASOPHILS % (AUTO) 1.2 % (0.0-2.0); EOSINOPHILS # (AUTO) 0.2 K/uL (0-0.4); EOSINOPHILS % (AUTO) 2.7 % (0.0-4.0); HEMATOCRIT 32.6 % (36-52); HEMOGLOBIN 10.9 g/dL (12.0-18.0); LYMPHOCYTES # (AUTO) 2.4 K/uL (2.0-11.5); LYMPHOCYTES % (AUTO) 39.3 % (20.5-51.1); MEAN CORPUSCULAR HEMOGLOBIN 30 pg (27-31); MEAN CORPUSCULAR HGB CONC 33 g/dL (33-37); MEAN CORPUSCULAR VOLUME 90 fL (80-94); MONOCYTES # (AUTO) 0.5 K/uL (0.8-1.0); MONOCYTES % (AUTO) 7.6 % (1.7-9.3); NEUTROPHILS % (AUTO) 49.2 % (42.2-75.2); PLATELET COUNT (AUTO) 233 K/uL (140-450); RED BLOOD CELL COUNT(AUTO) 3.63 MIL/uL (4.20-6.10); RED CELL DISTRIBUTION WIDTH 13.6 % (11.6-13.7); WHITE BLOOD COUNT (AUTO) 6.2 K/uL (4.8-10.8)
[2016-11-17 06:33] LABS: ANION GAP 8.9 (8-16); CALCIUM 8.7 mg/dL (8.5-10.1); CARBON DIOXIDE 29.3 mmol/L (21-32); CHLORIDE 105 mmol/L (98-107); CREATININE 1.8 mg/dL (0.6-1.3); GLUCOSE 211 mg/dL (74-106); POTASSIUM 4.2 mmol/L (3.5-5.1); SODIUM SERUM 139 mmol/L (136-145); UREA NITROGEN, BLOOD 17 mg/dL (7-18)
[2016-11-17 06:45] LABS: MAGNESIUM 1.9 mg/dL (1.8-2.4); PHOSPHORUS 2.6 mg/dL (2.5-4.9)
--- NOTE | 2016-11-17 07:13 | NUR ---
ENDORSED PT IN STABLE CONDITION TO NATASHA VILLALPANDO. ALL NEEDS HAVE BEEN MET AT THIS TIME.
--- NOTE | 2016-11-17 07:15 | NUR ---
RECEIVED REPORT FROM NATASHA ARSHAD. PT IS RESTING IN BED, A/OX1, ON ROOM AIR, IV ON RT HAND, PATENT, INTACT, FUSING WELL. NO S/S OF RESPIRATORY DISTRESS OR DISCOMFORT NOTED. PT IS S/P LEFT BIG TOE PARTIAL AMPUTATION. ORIENTED PATIENT TO THE ROOM, VERBALIZED PLAN OF CARE WITH PT, PT UNABLE TO COMPREHEND, SAFETY/FALL PRECAUTIONS IN PLACE, CALL LIGHT WITHIN REACH, WILL CONTINUE TO MONITOR.
[2016-11-17 08:00] VITALS: BP 145/66
[2016-11-17] MEDS ORDERED: MAGNESIUM OXIDE 400 MG TAB PO SCH (09:00)
--- NOTE | 2016-11-17 09:30 | NUR ---
PT IS RESTING IN BED. NO S/S OF RESPIRATORY DISTRESS OR DISCOMFORT NOTED. ALL NEEDS MET AT THIS TIME. CALL LIGHT WITHIN REACH. WILL CONTINUE TO MONITOR.
[2016-11-17] MEDS ORDERED: ACET-9525 PO (09:49)
[2016-11-17] MEDS ORDERED: CLIN300C2 PO (09:49)
[2016-11-17] MEDS ORDERED: LEVO750T2 PO (09:49)
[2016-11-17] MEDS ORDERED: HUMSLIDE SUBQ (09:49)
[2016-11-17] MEDS ORDERED: MAG400 PO (09:49)
[2016-11-17] MEDS ORDERED: PNE23I IMVAC (09:49)
[2016-11-17] MEDS ORDERED: ACET-1182 PO (09:49)
--- NOTE | 2016-11-17 11:15 | NUR ---
PT SLEEPING IN BED AT THIS MOMENT.
[2016-11-17] MEDS: VANCOMYCIN 1,250 MG in DEXTROSE 5% 250 ML IV SCH (13:45)
[2016-11-17] MEDS: DRY DRESSING TP SCH (13:48)
--- NOTE | 2016-11-17 13:50 | NUR ---
CM NOTE: PER JAQUI FROM [facility] ( TEL NO. [phone]), PATIENT CAN GO TO ROOM 508 BED A.
--- NOTE | 2016-11-17 13:54 | NUR ---
DUE MEDS GIVEN. WOUND DRESSING CHANGED. PT TOLERATED WELL.
--- NOTE | 2016-11-17 16:15 | NUR ---
DISCHARGED INSTRUCTIONS GIVEN, PT VERBALIZED UNDERSTANDING. REMOVED IV, CATHETER TIP INTACT, ID WRIST BAND REMOVED, PLACED PT ON DIAPERS, REPORT GIV[facility] TO [facility]LOCK FROM [facility]. PT PICKED UP VIA [facility] ST[facility] UPON DISCHARGE.
--- NOTE | 2016-11-17 16:15 | NUR ---
CM NOTE: ARRANGED [facility] WITH [facility] PHONE # [phone]. THEY WILL SEND [employer] TRANSPO. REFERENCE NO [id number].
== END 2016-11-17 16:15 | DRG 853 ==
LOC: MED 20:55 → MTU 11-12 00:38
PROVIDERS: ADMIT Internal Medicine Cardiovascular Disease; ATTEND Internal Medicine Cardiovascular Disease
PROC: 0Y6Q0Z3 Detachment at Left 1st Toe, Low, Open Approach (ICD-10-PCS; principal; 2016-11-16 12:30)
PROC: 0QBR0ZZ Excision of Left Toe Phalanx, Open Approach (ICD-10-PCS; 2016-11-16 12:30)
DX: A41.9 Sepsis, unspecified organism (principal); E43 Unspecified severe protein-calorie malnutrition; M86.8X7 Other osteomyelitis, ankle and foot; N17.9 Acute kidney failure, unspecified; N39.0 Urinary tract infection, site not specified; E11.52 Type 2 diabetes mellitus with diabetic peripheral angiopathy with gangrene; I69.954 Hemiplegia and hemiparesis following unspecified cerebrovascular disease affecting left non-dominant side; L03.032 Cellulitis of left toe; F03.90 Unspecified dementia, unspecified severity, without behavioral disturbance, psychotic disturbance, mood disturbance, and anxiety; I12.9 Hypertensive chronic kidney disease with stage 1 through stage 4 chronic kidney disease, or unspecified chronic kidney disease; N18.9 Chronic kidney disease, unspecified; J44.9 Chronic obstructive pulmonary disease, unspecified; D64.9 Anemia, unspecified; E83.51 Hypocalcemia; E83.42 Hypomagnesemia; E11.21 Type 2 diabetes mellitus with diabetic nephropathy; E11.65 Type 2 diabetes mellitus with hyperglycemia; E80.6 Other disorders of bilirubin metabolism; E11.22 Type 2 diabetes mellitus with diabetic chronic kidney disease; E11.42 Type 2 diabetes mellitus with diabetic polyneuropathy; E11.621 Type 2 diabetes mellitus with foot ulcer; E11.69 Type 2 diabetes mellitus with other specified complication; E78.5 Hyperlipidemia, unspecified; L97.529 Non-pressure chronic ulcer of other part of left foot with unspecified severity; Z68.37 Body mass index [BMI] 37.0-37.9, adult; Z87.891 Personal history of nicotine dependence
CPT/HCPCS: 36415; 71010; 73630; 76770; 80048; 80053; 80202; 81001; 82948; 83735; 84100; 85025; 85610; 85651; 86140; 87040; 87070; 87075; 87081; 87086; 87205; 93005; 93925; 94640; C1758; J1644; J1815; J2405; J2543; J2704; J3010; J3370; J3475; J3490; J7030; J7042; J7060; J7620; Q0092